=== PATIENT | male | born 1975 | race Caucasian/White ===

== ENCOUNTER 2022-10-11 13:13 | Emergency (ER) | payer OTHER ==
[~2022-10-11] VITALS: Ht 154.9 cm; Wt 84.1 kg
[2022-10-11] MEDS ORDERED: FLONASE AL50 MCG/ACT (16:58)
[2022-10-11] MEDS ORDERED: ROBITUSSIN AC10 ML PO (16:58)
[2022-10-11] MEDS ORDERED: KEFLEX500 MG PO (16:58)
[2022-10-11 17:46] VITALS: BP 114/71
== END 2022-10-11 17:52 | disposition home or self-care (01) | DRG 153 ==
LOC: ED 13:13
DX: J06.9 Acute upper respiratory infection, unspecified (principal); J32.9 Chronic sinusitis, unspecified; Z20.822 Contact with and (suspected) exposure to COVID-19; Q90.9 Down syndrome, unspecified; Z85.9 Personal history of malignant neoplasm, unspecified